=== PATIENT | female | born 1970 | race Two or more races ===

== ENCOUNTER 2023-05-14 20:56 | Inpatient (IN) | payer MEDICAID, OTHER ==
[~2023-05-14] VITALS: Ht 170.2 cm; Wt 63.6 kg
[2023-05-14 22:00] LABS: Basophils # (auto) 0 10 ^3/uL (0-0.2); Basophils % (auto) 0.4 % (0.0-2.0); Eosinophils # (auto) 0 10 ^3/uL (0-0.8); Hematocrit 41.6 % (36.0-46.0); Hemoglobin 14.2 g/dL (12.2-16.2); Lymphocytes # (auto) 0.3 10 ^3/uL (0.4-5.4); Lymphocytes % (auto) 6.3 % (10.0-50.0); Mean Corpuscular Hemoglobin 31.1 pg (28.0-32.0); Mean Corpuscular Hgb Conc. 34.1 g/dL (32.0-36.0); Mean Corpuscular Volume 91.2 fL (80.0-100.0); Monocytes # (auto) 0.6 10 ^3/uL (0-1.3); Monocytes % (auto) 12.8 % (0.0-12.0); Neutrophils # (auto) 3.6 10 ^3/uL (1.6-8.6); Neutrophils % (auto) 80.5 % (37.0-80.0); Red Blood Cells 4.56 10^6/uL (4.0-5.20); Red Cell Distribution Width 16.5 % (11.8-14.3); White Blood Cell 4.5 10^3/uL (4.4-10.8)
[2023-05-14 22:12] LABS: Albumin 4.3 g/dL (3.4-5.0); Calcium 9.7 mg/dL (8.5-10.1); Magnesium 2.1 mg/dL (1.6-2.6); Potassium 3.2 mmol/L (3.5-5.1)
[2023-05-14 22:16] LABS: Anisocytosis Slight; Bilirubin, Total 1.8 mg/dL (0.2-1.0); Large Platelets FEW; Platelet Estimate Decreased; Stomatocytes Few; Total Protein 8.3 g/dL (6.4-8.2)
[2023-05-14 22:33] VITALS: O2SAT 96
[2023-05-14] MEDS ORDERED: POTASSIUM CHL 20 Meq TABLET PO ONE (22:45)
[2023-05-14] MEDS ORDERED: ACETAMINOPHEN 325 MG TAB PO ONE (22:45)
[2023-05-14 22:50] LABS: Alcohol, Urine < 3.0 mg/dL (0-10); Amphetamine Screen, Urine NEGATIVE (NEGATIVE); Barbiturate Scree,Urine NEGATIVE (NEGATIVE); Benzodiazephine Screen, Urine NEGATIVE (NEGATIVE); Cannabinoid Screen, Urine NEGATIVE (NEGATIVE); Cocaine Screen, Urine NEGATIVE (NEGATIVE); Opiate Scree,Urine NEGATIVE (NEGATIVE); Phencyclidine Screen, Urine NEGATIVE (NEGATIVE)
[2023-05-14 22:53] LABS: Urine Bacteria FEW /hpf (None Seen); Urine Blood Negative /uL (Negative); Urine Clarity Clear (Clear); Urine Color Yellow (Yellow); Urine Hyaline Cast FEW /lpf (0 - 2); Urine Protein, UAD 1+ (Negative); Urine Specific Gravity 1.009 (1.001-1.035); Urine WBC 2 /hpf (0 - 5)
[2023-05-14] MEDS ORDERED: LORazepam 2MG/ML-1ML VIAL IV ONE (23:30)
[2023-05-14] MEDS ORDERED: ONDANSETRON HCL 4 MG/2 ML VIAL IV PRN (23:45)
[2023-05-14] MEDS ORDERED: ONDANSETRON HCL 4 MG/2 ML VIAL IV ONE (23:45)
[2023-05-14] MEDS ORDERED: IBUPROFEN 600 MG TAB PO PRN (23:45)
[2023-05-14] MEDS ORDERED: LORazepam 2MG/ML-1ML VIAL IV PRN (23:45)
[2023-05-14] MEDS ORDERED: DOCUSATE SOD 100 MG CAP PO PRN (23:45)
[2023-05-14] MEDS ORDERED: ACETAMINOPHEN 325 MG TAB PO PRN (23:45)
[2023-05-14] MEDS ORDERED: NITROGLYCERIN 0.4 MG SL TAB SL PRN (23:45)
[2023-05-15] MEDS: SODIUM CHLORIDE 0.9% 1,000 ML IV SCH ×2 (01:00→17:48)
[2023-05-15] MEDS ORDERED: cefTRIAXone 1GM/50ML D5W 50 ML IV ONE (01:30)
[2023-05-15] MEDS ORDERED: ASPirin 81 mg TAB PO ONE (01:45)
[2023-05-15] MEDS ORDERED: ASPirin 325 MG TAB PO ONE (01:45)
[2023-05-15 06:36] LABS: Potassium 3.7 mmol/L (3.5-5.1)
[2023-05-15 06:49] LABS: Albumin 4.1 g/dL (3.4-5.0); BUN/Creatinine Ratio 5.8 (10.0-20.0); Bilirubin, Total 1.8 mg/dL (0.2-1.0); Calcium 9.3 mg/dL (8.5-10.1); Total Protein 7.8 g/dL (6.4-8.2)
[2023-05-15 07:12] LABS: Basophils # (auto) 0 10 ^3/uL (0-0.2); Basophils % (auto) 0.3 % (0.0-2.0); Eosinophils # (auto) 0 10 ^3/uL (0-0.8); Eosinophils % (auto) 0.1 % (0.0-7.0); Hematocrit 40.5 % (36.0-46.0); Lymphocytes # (auto) 0.6 10 ^3/uL (0.4-5.4); Mean Corpuscular Hemoglobin 31.6 pg (28.0-32.0); Mean Corpuscular Hgb Conc. 34.5 g/dL (32.0-36.0); Mean Corpuscular Volume 91.7 fL (80.0-100.0); Monocytes # (auto) 0.7 10 ^3/uL (0-1.3); Monocytes % (auto) 13.6 % (0.0-12.0); Neutrophils # (auto) 4.1 10 ^3/uL (1.6-8.6); Nucleated Red Blood Cells % 0.1 %; Red Blood Cells 4.42 10^6/uL (4.0-5.20); Red Cell Distribution Width 16.4 % (11.8-14.3); White Blood Cell 5.4 10^3/uL (4.4-10.8)
[2023-05-15 07:20] VITALS: PULSE 74; RESP 12; O2SAT 98
[2023-05-15] MEDS ORDERED: ASPirin 81 mg TAB PO SCH (10:00)
[2023-05-15 10:51] LABS: Platelet Estimate Decreased; RBC Morphology Normal
[2023-05-15 10:52] LABS: Giant Platelets Moderate
[2023-05-15 14:15] VITALS: PULSE 71; RESP 18; O2SAT 94
[2023-05-15] MEDS ORDERED: LORazepam 2MG/ML-1ML VIAL IV PRN (19:00)
[2023-05-15 19:30] VITALS: PULSE 89; RESP 25; O2SAT 97
[2023-05-15 20:58] LABS: Free T4 (Free Thyroxine) 1.42 ng/dL (0.89-1.76)
[2023-05-15] MEDS ORDERED: cefTRIAXone 1GM/50ML D5W 50 ML IV SCH (21:00)
[2023-05-15 21:25] VITALS: BP 97/60; PULSE 72; PULSE 87; RESP 18; RESP 20; TEMP 98.1; O2SAT 97; O2SAT 98
[2023-05-16 04:44] VITALS: BP 90/44; PULSE 61; RESP 16; TEMP 97.4; O2SAT 100
[2023-05-16 08:00] VITALS: PULSE 64; RESP 16; O2SAT 98
[2023-05-16 09:00] VITALS: BP 120/72; PULSE 81; RESP 17; TEMP 99.4; O2SAT 97
[2023-05-16] MEDS: SODIUM CHLORIDE 0.9% 1,000 ML IV SCH (09:05)
[2023-05-16] MEDS ORDERED: THIAMINE 100mg/ml INJ (200mg/2ml VIAL) IV SCH (10:00)
[2023-05-18 09:24] LABS: Folate (Folic Acid) 17.7 ng/mL (5.38-24)
[2023-05-19 08:06] LABS: Albumin 3.5 g/dL (2.9-4.4); Alpha-1-Globulin 0.3 g/dL (0.0-0.4); Alpha-2-Globulin 0.6 g/dL (0.4-1.0); Gamma Globulin 1.2 g/dL (0.4-1.8); Globulin Total 3.1 g/dL (2.2-3.9); Protein Total Serum 6.6 g/dL (6.0-8.5)
== END 2023-05-16 09:00 | disposition left against medical advice (07) | DRG 53 ==
LOC: ER 20:56 → EDBD 20:56 → TELE 23:48 → TELE-EAST 05-15 21:17
PROVIDERS: ADMIT Family Medicine; ATTEND Family Medicine
DX: G40.409 Other generalized epilepsy and epileptic syndromes, not intractable, without status epilepticus (principal); D69.6 Thrombocytopenia, unspecified; I21.A1 Myocardial infarction type 2; E87.1 Hypo-osmolality and hyponatremia; E87.8 Other disorders of electrolyte and fluid balance, not elsewhere classified; F17.200 Nicotine dependence, unspecified, uncomplicated; R51.9 Headache, unspecified; N39.0 Urinary tract infection, site not specified; F10.10 Alcohol abuse, uncomplicated; E87.6 Hypokalemia; G62.9 Polyneuropathy, unspecified; J45.909 Unspecified asthma, uncomplicated; Z53.29 Procedure and treatment not carried out because of patient's decision for other reasons; R44.2 Other hallucinations; R74.01 Elevation of levels of liver transaminase levels; R79.89 Other specified abnormal findings of blood chemistry; Z82.49 Family history of ischemic heart disease and other diseases of the circulatory system; Z83.3 Family history of diabetes mellitus; Z88.5 Allergy status to narcotic agent; Z90.49 Acquired absence of other specified parts of digestive tract; Z88.8 Allergy status to other drugs, medicaments and biological substances
CPT/HCPCS: 36415; 70450; 72125; 80053; 80307; 81001; 82607; 82746; 83036; 83690; 83735; 84155; 84165; 84439; 84443; 84484; 85025; 87086; 93005; 93306; 95819; 96365; 96375; G0378; J0696; J2405; J7060